=== PATIENT | female | born 1980 ===

== ENCOUNTER 2017-03-01 11:55 | Emergency (ER) | payer OTHER, SELFPAY ==
[2017-03-01 11:55] VITALS: BMI 40.6
[2017-03-01 12:20] VITALS: BP 109/58; PULSE 66; RESP 16; TEMP 98; O2SAT 98
== END 2017-03-01 14:07 | disposition home or self-care (01) ==
LOC: H.ER 11:55
DX: M79.606 Pain in leg, unspecified (principal)